=== PATIENT | female | born 1945 | race Caucasian/White ===

== ENCOUNTER 2017-06-08 07:37 | Emergency (ER) | payer MEDICARE ==
[~2017-06-08] VITALS: Ht 160 cm; Wt 55.2 kg
[2017-06-08 07:41] VITALS: BP 164/77
[2017-06-08] MEDS ORDERED: DIPH,PERTUSS(ACELL),TET VAC/PF 0.5 ML IM-VACC ONE ×2 (08:00→08:07)
[2017-06-08] MEDS ORDERED: BACITRACIN ZINC OINT 500U/GM, 0.9 GM ONE (08:18)
== END 2017-06-08 08:49 | disposition home or self-care (01) ==
LOC: ED 08:38
DX: S91.154A Open bite of right lesser toe(s) without damage to nail, initial encounter (principal); I10 Essential (primary) hypertension; W54.0XXA Bitten by dog, initial encounter; Y93.89 Activity, other specified; Y92.009 Unspecified place in unspecified non-institutional (private) residence as the place of occurrence of the external cause; Y99.9 Unspecified external cause status
CPT/HCPCS: 90471; 90715

== ENCOUNTER 2017-10-07 08:41 | Emergency (ER) | payer MEDICARE ==
[~2017-10-07] VITALS: Ht 160 cm; Wt 55.8 kg
[2017-10-07 08:49] VITALS: BP 169/69
[2017-10-07] MEDS ORDERED: DOCUSATE 50 MG/5 ML ORAL SOL ONE (09:24)
[2017-10-07] MEDS ORDERED: CARBAMIDE PEROXIDE EAR DROPS 6.5%, 15ML RIGHT EAR ONE (09:30)
[2017-10-07] MEDS ORDERED: CARBAMIDE PEROXIDE EAR DROPS 6.5%, 15ML ONE (09:31)
== END 2017-10-07 10:23 | disposition home or self-care (01) ==
LOC: ED 10:00
DX: H61.21 Impacted cerumen, right ear (principal); H92.01 Otalgia, right ear; I10 Essential (primary) hypertension
CPT/HCPCS: 99283

== ENCOUNTER 2017-10-29 09:54 | Emergency (ER) | payer MEDICARE ==
[~2017-10-29] VITALS: Ht 160 cm; Wt 55.1 kg
[2017-10-29 11:57] LABS: BASOPHILS # (AUTO) 0.05 x10^3/uL (0-0.1); BASOPHILS % (AUTO) 1 % (0-1); EOSINOPHILS # (AUTO) 0.08 x10^3/uL (0-0.4); EOSINOPHILS % (AUTO) 1 % (1-7); LYMPHOCYTES # (AUTO) 2.76 x10^3/uL (1-3.4); LYMPHOCYTES % (AUTO) 24 % (22-44); MD NO; MEAN CORPUSCULAR HEMOGLOBIN 32.3 pg (27.0-34.8); MEAN CORPUSCULAR HGB CONC 33.8 g/dL (32.4-35.8); MEAN CORPUSCULAR VOLUME 95.7 fL (80-100); MEAN PLATELET VOLUME 8.1 fL (7.4-10.4); MONOCYTES # (AUTO) 0.81 x10^3/uL (0.2-0.8); MONOCYTES % (AUTO) 7 % (2-9); NEUTROPHILS # (AUTO) 7.93 x10^3/uL (1.8-6.8); NEUTROPHILS % (AUTO) 68 % (42-75); PLATELET COUNT 424 x10^3/uL (130-400); RED BLOOD COUNT 4.89 x10^6/uL (3.82-5.3); RED CELL DISTRIBUTION WIDTH 12.3 % (9.6-15.2)
[2017-10-29 12:07] LABS: INTERNATIONAL NORMALIZED RATIO 1.06 (0.93-1.1)
[2017-10-29 12:10] LABS: ALBUMIN 3.8 g/dL (3.4-5.0); ANION GAP 8 mmol/L (5-15); CALCIUM 9.3 mg/dL (8.5-10.1); CHLORIDE 98 mmol/L (98-107); CREATININE 0.53 mg/dL (0.55-1.02)
[2017-10-29 12:13] LABS: TROPONIN I < 0.015 ng/mL (0.000-0.045)
[2017-10-29] MEDS ORDERED: METO25TA35 PO (12:26)
[2017-10-29] MEDS ORDERED: HYDR25TA6 PO (12:27)
[2017-10-29 13:27] VITALS: BP 164/72
== END 2017-10-29 13:29 | disposition home or self-care (01) ==
LOC: ED 11:16
DX: G45.3 Amaurosis fugax (principal); I10 Essential (primary) hypertension
CPT/HCPCS: 36415; 70450; 80048; 82040; 84484; 85025; 85610; 85730; 93005; 99285

== ENCOUNTER 2017-11-25 10:55 | Emergency (ER) | payer MEDICARE ==
[~2017-11-25] VITALS: Ht 160 cm; Wt 54.4 kg
[~2017-11-25 10:55] MED LIST: HYDR25TA6 PO; METO25TA35 PO
[2017-11-25] MEDS ORDERED: SODIUM CHLORIDE FLUSH 10ML SYR IVF ONE (12:30)
[2017-11-25] MEDS ORDERED: LORazepam 2 MG/ML, 1ML IVPush ONE (12:30)
[2017-11-25 12:46] LABS: BASOPHILS # (AUTO) 0.05 x10^3/uL (0-0.1); BASOPHILS % (AUTO) 1 % (0-1); EOSINOPHILS # (AUTO) 0.11 x10^3/uL (0-0.4); EOSINOPHILS % (AUTO) 1 % (1-7); HCT (SEDRATE) 45.6 % (34.6-47.8); LYMPHOCYTES # (AUTO) 2.43 x10^3/uL (1-3.4); LYMPHOCYTES % (AUTO) 22 % (22-44); MD NO; MEAN CORPUSCULAR HEMOGLOBIN 32.5 pg (27.0-34.8); MEAN CORPUSCULAR HGB CONC 34.2 g/dL (32.4-35.8); MEAN PLATELET VOLUME 9.1 fL (7.4-10.4); MONOCYTES # (AUTO) 0.71 x10^3/uL (0.2-0.8); MONOCYTES % (AUTO) 6 % (2-9); NEUTROPHILS # (AUTO) 7.72 x10^3/uL (1.8-6.8); NEUTROPHILS % (AUTO) 70 % (42-75); PLATELET COUNT 291 x10^3/uL (130-400); RED CELL DISTRIBUTION WIDTH 12.6 % (9.6-15.2)
[2017-11-25 13:04] LABS: ALBUMIN 3.9 g/dL (3.4-5.0); ANION GAP 8 mmol/L (5-15); C-REACTIVE PROTEIN, QUANT 0.33 mg/dL (0.02-0.49); CALCIUM 8.8 mg/dL (8.5-10.1); CHLORIDE 103 mmol/L (98-107); CREATININE 0.53 mg/dL (0.55-1.02)
[2017-11-25 13:06] LABS: CREATINE KINASE, TOTAL 83 U/L (26-192)
[2017-11-25] MEDS ORDERED: GADOBUTROL 7.5 MMOL/7.5 ML PFS ONE (13:25)
[2017-11-25 13:28] LABS: SEDIMENTATION RATE 6 mm/hr (0-20)
[2017-11-25 15:06] VITALS: BP 167/77
[2017-11-25 15:21] LABS: RAPID PLASMA REAGIN Nonreactive (Nonreactive)
[2017-11-25] MEDS ORDERED: OMNIPAQUE 350 MG/ML, 100ML BOTTLE ONE (15:57)
[2017-11-25 16:10] LABS: ANA SCREEN NEGATIVE (Negative)
== END 2017-11-25 16:31 | disposition home or self-care (01) ==
LOC: ED 16:02
DX: H54.3 Unqualified visual loss, both eyes (principal); F17.200 Nicotine dependence, unspecified, uncomplicated; Z79.82 Long term (current) use of aspirin
CPT/HCPCS: 36415; 70496; 70553; 71045; 80048; 82040; 82164; 82550; 83520; 85025; 85549; 85651; 86038; 86140; 86147; 86256; 86592; 93005; 93880; 99285; A9585; Q9967

== ENCOUNTER 2019-03-08 11:27 | Outpatient (CLI) | payer MEDICARE | END 2019-03-08 23:59 | disposition home or self-care (01) | LOC: CFH 11:27 | PROVIDERS: ATTEND Radiology Diagnostic Radiology | DX: R05 Cough (principal) | CPT/HCPCS: 71046 ==